=== PATIENT | male | born 1985 | race Caucasian/White ===

== ENCOUNTER 2024-02-15 23:17 | Emergency (ER) | payer OTHER ==
[~2024-02-15] VITALS: Ht 172.7 cm; Wt 100.0 kg
[2024-02-15 23:19] VITALS: O2SAT 98
[2024-02-15 23:30] VITALS: BP 130/85; PULSE 82; RESP 18; TEMP 98.2; O2SAT 99
== END 2024-02-16 00:24 | disposition home or self-care (01) ==
LOC: ER 23:17
DX: S61.211A Laceration without foreign body of left index finger without damage to nail, initial encounter (principal); Z90.49 Acquired absence of other specified parts of digestive tract; W26.0XXA Contact with knife, initial encounter; Y93.89 Activity, other specified; Y92.89 Other specified places as the place of occurrence of the external cause; Y99.8 Other external cause status
CPT/HCPCS: 12001; 99282